=== PATIENT | male | born 1945 | race Caucasian/White ===

== ENCOUNTER 2016-07-30 23:53 | Inpatient (IN) | payer MEDICARE, OTHER ==
[~2016-07-30] VITALS: Ht 185.4 cm; Wt 95.1 kg
--- NOTE | 2016-07-31 00:19 | NUR ---
IV STARTED ON LEFT AC 18G. LABS DRAWN AND SENT TO LAB.
[2016-07-31 00:25] LABS: BASOPHILS % (AUTO) 0.7 % (0.0-2.0); EOSINOPHILS # (AUTO) 0.2 /CMM (0.0-0.7); EOSINOPHILS % (AUTO) 4.9 % (0.0-6.0); HEMATOCRIT 40 % (39-51); HEMOGLOBIN 13.4 g/dL (13.5-17.5); LYMPHOCYTES # (AUTO) 1.7 /CMM (0.8-4.8); LYMPHOCYTES % (AUTO) 35.8 % (20.0-44.0); MEAN CORPUSCULAR HEMOGLOBIN 30 PG (26.0-33.0); MEAN CORPUSCULAR HGB CONC 33 g/dl (31.0-36.0); MEAN CORPUSCULAR VOLUME 90 fL (80-96); MONOCYTES # (AUTO) 0.5 /CMM (0.1-1.30); MONOCYTES % (AUTO) 9.6 % (2.0-12.0); NEUTROPHILS # (AUTO) 2.3 /CMM (1.8-8.9); PLATELET COUNT (AUTO) 261 /CMM (150-450); RDW COEFFICIENT OF VARIATION 13.9 (11.5-15.0); RED BLOOD CELL COUNT(AUTO) 4.45 MIL/uL (4.5-6.0); WHITE BLOOD COUNT (AUTO) 4.8 K/uL (4.3-11.0)
[2016-07-31 00:36] LABS: CALCIUM, SERUM 8.8 mg/dL (8.5-10.1); CARBON DIOXIDE 26 mmol/L (21-32); CHLORIDE 104 mmol/L (98-107); CREATININE 1.1 mg/dL (0.6-1.3); GLUCOSE 111 mg/dL (74-106); SODIUM SERUM 141 mmol/L (136-145); UREA NITROGEN, BLOOD 15 mg/dL (7-18)
--- NOTE | 2016-07-31 00:38 | NUR ---
RYAN ALLEN IS AT THE BEDSIDE.
[2016-07-31 00:39] LABS: INR 0.92 (0.87-1.13); PROTHROMBIN TIME 9.8 SECS (9.5-12.7)
--- NOTE | 2016-07-31 00:41 | NUR ---
PT RETURNED FROM CT.
[2016-07-31 00:47] LABS: ALANINE AMINOTRANSFERASE 21 U/L (12-78); ALBUMIN 3.7 g/dL (3.4-5.0); ALKALINE PHOSPHATASE 84 U/L (46-116); ASPARTATE AMINOTRANSFERASE 15 U/L (15-37); B-TYPE NATRIURETIC PEPTIDE 239 PG/ML (0-125); BILIRUBIN,DIRECT 0.1 mg/dL (0.0-0.2); BILIRUBIN,TOTAL 0.4 mg/dL (0.2-1.0); TOTAL PROTEIN, SERUM 7.4 g/dL (6.4-8.2); TROPONIN I < 0.017 ng/mL (0.00-0.056)
--- NOTE | 2016-07-31 01:20 | NUR ---
URINE SAMPLE SENT TO LAB.
[2016-07-31 01:30] LABS: APPEARANCE,URINE CLEAR (CLEAR); BILIRUBIN,URINE NEGATIVE (NEGATIVE); BLOOD, URINE NEGATIVE Ery/uL (NEGATIVE); COLOR,URINE YELLOW (YELLOW); KETONES,URINE NEGATIVE (NEGATIVE); LEUKOCYTE ESTERASE ,URINE TRACE (NEGATIVE); NITRITE, URINE NEGATIVE (NEGATIVE); PROTEIN,URINE NEGATIVE (NEGATIVE); UGLUCOSE NEGATIVE (NEGATIVE); UROBILINOGEN,URINE 0.2 EU/dL (0.2)
[2016-07-31 01:35] LABS: CANNABINOID, URINE NEGATIVE (NEGATIVE); PHENCYCLIDINE SCREEN,URINE NEGATIVE (NEGATIVE)
[2016-07-31 01:41] LABS: RBC,URINE 0-2 /HPF (0-2)
[2016-07-31 01:42] LABS: ADD URINE CULTURE NO; BACTERIA,URINE Few /HPF (None Seen); SQUAMOUS EPITHELIAL CELL,UR Rare /HPF (None Seen)
--- NOTE | 2016-07-31 01:56 | NUR ---
CALLING REPORT TO LINDA LYNN
[2016-07-31 02:25] VITALS: BP 133/78
--- NOTE | 2016-07-31 02:25 | NUR ---
RN NOTES ADMITTED A 71 YEARS OLD, MALE PT FROM ER VIA [facility] WITH PRIMARY DIAGNOSIS OF CHEST PAIN UNDER DR ARAYA. PT ALERT AND ORIENTED X3, NO SOB, NO SIGNS OF DISTRESS AND DISCOMFORT NOTED, TOLERATING ROOM AIR WITH GOOD O2 SAT. PT DENIES CHEST PAIN, NAUSEA AND VOMITING. ATTACHED TO TELEMONITOR WHICH READS NORMAL SINUS RHYTHM AT 70. VITAL SIGNS STABLE. LUNGS CLEAR UPON AUSCULTATION. SKIN ASSESSMENT DONE, NOTED WITH BRUISES ON BOTH FORE ARMS, PICTURES TAKEN AND FILED IN THE CHART. PT ON CARDIAC DIET AND TOLERATED WELL. PT NOTED AMBULATORY WITH STEADY GAIT. ALL ORDERS NOTED AND CARRIED OUT. KEPT COMFORTABLE AND ATTENDED. WILL CONTINUE TO MONITOR PT. PT WAS ARRESTED PRIOR TO GOING TO ER, PT ON HOLD WITH 2 [employer] SET UP OPERATOR AT BEDSIDE.
[2016-07-31 02:30] VITALS: BP 133/78
[2016-07-31] MEDS ORDERED: MORPHINE SULFATE INJ 2 MG/ML DISP.SYRIN IV PRN ×2 (02:30)
[2016-07-31] MEDS ORDERED: LORAZEPAM 1 MG TABLET PO PRN (02:30)
[2016-07-31] MEDS ORDERED: DOCUSATE SODIUM 100 MG CAPSULE PO PRN (02:30)
[2016-07-31] MEDS ORDERED: ACETAMINOPHEN 325 MG TABLET PO PRN (02:30)
[2016-07-31] MEDS ORDERED: Thiamine 100 MG in IV D5W 50 ML IV SCH (02:30)
[2016-07-31] MEDS ORDERED: IV D5/ 0.9% NACL 1,000 ML IV PRN (02:30)
[2016-07-31] MEDS ORDERED: Folic acid 1 MG in IV D5W 50 ML IV SCH (02:30)
[2016-07-31] MEDS ORDERED: NITROGLYCERIN 0.4 MG/TAB BOTTLE SL PRN (02:30)
[2016-07-31] MEDS ORDERED: ONDANSETRON HCL/PF 4 MG/2 ML VIAL IVP PRN (02:30)
[2016-07-31] MEDS ORDERED: ZOLPIDEM TARTRATE 5 MG TABLET PO PRN (02:30)
--- NOTE | 2016-07-31 02:33 | NUR ---
PT TRANSFERED PER [employer]S PROTOCOL.
[2016-07-31] MEDS ORDERED: Thiamine 100 MG/ML VIAL ONE (03:12)
[2016-07-31] MEDS ORDERED: IV D5W 50 ML IV ONE ×2 (03:13→03:14)
[2016-07-31] MEDS ORDERED: Folic acid 1 MG/0.2 ML VIAL ONE (03:14)
[2016-07-31] MEDS ORDERED: IV SET PRIMARY PUMP SET 1 EA INFUS.SET MC ONE (03:20)
[2016-07-31] MEDS ORDERED: IV NS 0.9% 250 ML IV ONE (03:21)
[2016-07-31] MEDS ORDERED: SECONDARY IV SET 1 EA INFUS.SET MC ONE (03:21)
[2016-07-31] MEDS ORDERED: IV D5/ 0.9% NACL 1,000 ML IV ONE (05:16)
--- NOTE | 2016-07-31 07:03 | NUR ---
RN NOTES PT ASLEEP, BREATHING REGULAR AND UNLABORED, NO SIGNS OF DISTRESS AND DISCOMFORT NOTED. TELEMONITOR READS SINUS RHYTHM AT 86. NO COMPLAIN OF CHEST PAIN. VITAL SIGNS STABLE, AFEBRILE. NO EPISODE OF NAUSEA AND VOMITING. PT SLEPT WELL. ALL DUE MEDS GIVEN. WILL ENDORSE TO MORNING RN FOR CONTINUITY OF CARE.
--- NOTE | 2016-07-31 07:20 | NUR ---
MS RN RECEIVED ON BED, AWAKE,ALERT,ORIENTED X4,NOT IN ANY FORM OF DISTRESS, RESPIRATIONS EVEN AND UNLABORED,NO SOB NOTED, DENIES PAIN AT THIS TIME,WILL MONITOR PATIENT'S CONDITION.
[2016-07-31] MEDS ORDERED: CARV12.52 PO (08:34)
[2016-07-31] MEDS ORDERED: ZOLP10TA2 PO (08:34)
[2016-07-31] MEDS ORDERED: OMEP40CA37 PO (08:34)
[2016-07-31] MEDS ORDERED: ATOR40TA PO (08:34)
[2016-07-31] MEDS ORDERED: LAMO100T PO (08:34)
[2016-07-31] MEDS ORDERED: BUPR-51 PO (08:34)
[2016-07-31] MEDS ORDERED: CLOP75TA2 PO (08:34)
[2016-07-31] MEDS ORDERED: AMLO5TAB2 PO (08:34)
[2016-07-31] MEDS ORDERED: ASPIRIN 81 MG TAB.CHEW PO SCH (09:00)
[2016-07-31] MEDS ORDERED: CARVEDILOL 6.25 MG TABLET PO SCH (09:00)
[2016-07-31] MEDS ORDERED: LISINOPRIL (10MG) 10 MG TABLET PO SCH (09:00)
--- NOTE | 2016-07-31 09:00 | NUR ---
MS JOHANNY WAS SEEN BY DR. JOSE Garcia/ ORDERS MADE AND CARRIED OUT.
[2016-07-31 09:20] VITALS: BP 147/82
[2016-07-31 10:28] LABS: BASOPHILS # (AUTO) 0.1 /CMM (0.0-0.2); BASOPHILS % (AUTO) 2.2 % (0.0-2.0); EOSINOPHILS # (AUTO) 0.2 /CMM (0.0-0.7); EOSINOPHILS % (AUTO) 3.4 % (0.0-6.0); HEMATOCRIT 41 % (39-51); HEMOGLOBIN 13.6 g/dL (13.5-17.5); LYMPHOCYTES % (AUTO) 19.9 % (20.0-44.0); MEAN CORPUSCULAR HEMOGLOBIN 30 PG (26.0-33.0); MEAN CORPUSCULAR HGB CONC 33 g/dl (31.0-36.0); MEAN CORPUSCULAR VOLUME 90 fL (80-96); MONOCYTES # (AUTO) 0.4 /CMM (0.1-1.30); MONOCYTES % (AUTO) 8.2 % (2.0-12.0); NEUTROPHILS # (AUTO) 3.4 /CMM (1.8-8.9); NEUTROPHILS % (AUTO) 66.3 % (43.0-81.0); PLATELET COUNT (AUTO) 281 /CMM (150-450); RDW COEFFICIENT OF VARIATION 13.9 (11.5-15.0); RED BLOOD CELL COUNT(AUTO) 4.59 MIL/uL (4.5-6.0); WHITE BLOOD COUNT (AUTO) 5.1 K/uL (4.3-11.0)
[2016-07-31 11:15] LABS: ALANINE AMINOTRANSFERASE 17 U/L (12-78); ALBUMIN 3.4 g/dL (3.4-5.0); ALKALINE PHOSPHATASE 90 U/L (46-116); ASPARTATE AMINOTRANSFERASE 9 U/L (15-37); BILIRUBIN,TOTAL 0.2 mg/dL (0.2-1.0); CALCIUM, SERUM 8.9 mg/dL (8.5-10.1); CARBON DIOXIDE 22 mmol/L (21-32); CHLORIDE 108 mmol/L (98-107); CREATININE 1.3 mg/dL (0.6-1.3); GLUCOSE 112 mg/dL (74-106); MAGNESIUM 1.7 mg/dL (1.8-2.4); PHOSPHORUS 3.8 mg/dL (2.5-4.9); POTASSIUM 4.3 mmol/L (3.5-5.1); SODIUM SERUM 143 mmol/L (136-145); TOTAL PROTEIN, SERUM 7.1 g/dL (6.4-8.2); UREA NITROGEN, BLOOD 19 mg/dL (7-18)
[2016-07-31 11:17] LABS: TROPONIN I < 0.017 ng/mL (0.00-0.056)
--- NOTE | 2016-07-31 13:00 | NUR ---
MS FURNITURE DECALS INSPECTOR TO SNF ACCOMPANIED BY GEOLOGICAL SURVEY FIELD ASSISTANT, NO DISTRESS NOTED.
[2016-07-31] MEDS ORDERED: SIMVASTATIN 20 MG TABLET PO SCH (22:00)
[2016-08-01] MEDS ORDERED: Folic acid 1 MG in IV D5W 50 ML IV SCH (09:00)
[2016-08-01] MEDS ORDERED: Thiamine 100 MG in IV D5W 50 ML IV SCH (09:00)
== END 2016-07-31 13:00 | DRG 206 ==
LOC: ER 23:57 → TELE 07-31 02:06
PROVIDERS: ADMIT Internal Medicine; ATTEND Internal Medicine
DX: M94.0 Chondrocostal junction syndrome [Tietze] (principal); I25.2 Old myocardial infarction; Z86.73 Personal history of transient ischemic attack (TIA), and cerebral infarction without residual deficits; Z95.1 Presence of aortocoronary bypass graft; N18.9 Chronic kidney disease, unspecified; F10.129 Alcohol abuse with intoxication, unspecified; Y90.8 Blood alcohol level of 240 mg/100 ml or more; E83.42 Hypomagnesemia; V03.90XA Pedestrian on foot injured in collision with car, pick-up truck or van, unspecified whether traffic or nontraffic accident, initial encounter; Y92.481 Parking lot as the place of occurrence of the external cause
CPT/HCPCS: 36415; 70450-TC; 71010-TC; 72125-TC; 80048-TC; 80053-TC; 80076-TC; 80305; 81000-TC; 82962-TC; 83735-TC; 83880; 84100-TC; 84484-TC; 85025-TC; 85730-TC; 87081-TC; 93307-TC; A4606; G0480; J3411; J3490; J7042; J7050; J7060; Z7610